=== PATIENT | male | born 1985 | race Caucasian/White ===

== ENCOUNTER 2020-04-11 16:42 | Emergency (ER) | payer OTHER ==
[~2020-04-11] VITALS: Ht 182.9 cm; Wt 90.7 kg
--- NOTE | 2020-04-11 16:53 | NUR ---
BIBS FROM WORK TO ER BED 12. AAOX4. NOT IN RESP DISRTRESS. AMBULATORY. CAME IN FOR RIGHT ANTECUBITAL PAIN WITH LUMP SINCE FRIDAY. PT RATES THE PAIN 3/10 EXTEDING TO ELBOW AND UPPER ARM. PT REPORTS THAT HE WAS DIAGNOSED WITH AN ANEURSYM ON THE R ARM 1 YR AGO. AWAITING MD FOR EVAL.
--- NOTE | 2020-04-11 18:44 | NUR ---
KAJAL FLORES TALKING TO DR. AGUILAR.
[2020-04-11 18:58] VITALS: BP 104/80
--- NOTE | 2020-04-11 18:58 | NUR ---
Patient discharged to home in stable condition. Written and verbal after care instructions given. Patient verbalizes understanding of instruction. Pt ambulatory with a steady gait
== END 2020-04-11 18:59 | disposition home or self-care (01) ==
LOC: ER 16:50
DX: I72.1 Aneurysm of artery of upper extremity (principal)
CPT/HCPCS: 93930-TC

== ENCOUNTER 2023-07-30 14:49 | Emergency (ER) | payer MEDICAID, OTHER ==
[~2023-07-30] VITALS: Ht 182.9 cm; Wt 70.3 kg
[2023-07-30 15:08] VITALS: BP 121/65; TEMP 98; O2SAT 98
== END 2023-07-30 16:46 | disposition left against medical advice (07) ==
LOC: ER 14:52
DX: M54.2 Cervicalgia (principal); Z53.21 Procedure and treatment not carried out due to patient leaving prior to being seen by health care provider

== ENCOUNTER 2023-10-02 09:33 | Emergency (ER) | payer OTHER ==
[~2023-10-02] VITALS: Ht 182.9 cm; Wt 77.1 kg
[2023-10-02] MEDS ORDERED: CYCL5TAB PO (10:38)
[2023-10-02] MEDS ORDERED: LIDO30AD10 TP (10:38)
[2023-10-02] MEDS ORDERED: IBUP-1955 PO (10:38)
[2023-10-02] MEDS ORDERED: METH4TAB17 PO (10:38)
[2023-10-02 11:08] VITALS: BP 131/88; TEMP 98.1; O2SAT 100
== END 2023-10-02 11:09 | disposition home or self-care (01) ==
LOC: ER 09:38
DX: G89.29 Other chronic pain (principal); M54.2 Cervicalgia; M54.12 Radiculopathy, cervical region; M25.512 Pain in left shoulder; F32.A Depression, unspecified; F41.9 Anxiety disorder, unspecified

== ENCOUNTER 2023-10-26 08:12 | Emergency (ER) | payer OTHER ==
[~2023-10-26] VITALS: Ht 182.9 cm; Wt 77.1 kg
[~2023-10-26 08:12] MED LIST: CYCL5TAB PO; IBUP-1955 PO; LIDO30AD10 TP; METH4TAB17 PO
[2023-10-26 08:21] VITALS: BP 134/91; TEMP 98.2
[2023-10-26] MEDS ORDERED: KETOROLAC TROMETHAMINE INJ 30 MG/ML VIAL ONE (08:45)
[2023-10-26] MEDS ORDERED: IBUP-1955 PO (08:48)
[2023-10-26] MEDS: KETOROLAC TROMETHAMINE INJ 60 MG/2 ML VIAL IM ONE (08:49)
[2023-10-26 08:55] VITALS: O2SAT 98
== END 2023-10-26 08:55 | disposition home or self-care (01) ==
LOC: ER 08:16
DX: G89.29 Other chronic pain (principal); M54.2 Cervicalgia; F32.A Depression, unspecified; F41.9 Anxiety disorder, unspecified; Z79.899 Other long term (current) drug therapy
CPT/HCPCS: J1885